=== PATIENT | male | born 1970 | race African-American/Black ===

== ENCOUNTER 2021-04-09 06:23 | Inpatient (IN) | payer MEDICAID ==
[~2021-04-09] VITALS: Ht 175.3 cm; Wt 62.2 kg
[2021-04-09 08:18] LABS: COVID AG,FIA SOURCE NASOPHARYNGEAL
[2021-04-09 09:22] LABS: TROPONIN I < 0.02 ng/mL (0.00-0.05)
[2021-04-09 09:38] LABS: AMMONIA 47 umol/L (11-32)
[2021-04-09 09:52] LABS: BASOPHILS % (AUTO) 0.6 % (0.0-2.0); EOSINOPHILS % (AUTO) 0.2 % (1.0-6.0); HEMATOCRIT 41.6 % (41-53); HEMOGLOBIN 12.9 g/dL (13.5-17.5); LYMPHOCYTES # (AUTO) 1.2 K/uL (1.0-4.8); LYMPHOCYTES % (AUTO) 17.5 % (22.0-44.0); MEAN CORPUSCULAR HEMOGLOBIN 22.6 pg (26.0-34.0); MEAN CORPUSCULAR VOLUME 73 fL (80-100); MONOCYTES # (AUTO) 0.6 K/uL (0.1-1.0); NEUTROPHILS # (AUTO) 5.2 K/uL (1.8-7.7); NEUTROPHILS % (AUTO) 73.7 % (40.0-70.0); PLATELET COUNT (AUTO) 255 K/uL (150-450); RED CELL DISTRIBUTION WIDTH 16.8 % (11.5-14.5)
[2021-04-09 10:15] LABS: PLATELET MORPHOLOGY COMMENT LARGE PLTS PRESENT
[2021-04-09 10:26] LABS: ANION GAP 10 mmol/L (8-16); CALCIUM, TOTAL 8.5 mg/dL (8.8-10.5); CARBON DIOXIDE 28 mmol/L (22-29); CHLORIDE 104 mmol/L (98-107); CREATININE 0.86 mg/dL (0.60-1.30); GLUCOSE,RANDOM 71 mg/dL (70-110); POTASSIUM 3.6 mmol/L (3.5-5.1); SODIUM SERUM 142 mmol/L (136-145); UREA NITROGEN, BLOOD 12 mg/dL (7-18)
[2021-04-09 10:27] LABS: GLOMERULAR FILTR. RATE CALC > 60 mL/min (>60)
[2021-04-09 10:34] LABS: LACTIC ACID 1.3 mmol/L (0.4-2.0)
[2021-04-09 10:51] LABS: ALANINE AMINOTRANSFERASE 49 U/L (12-78); ALBUMIN 3.3 g/dL (3.4-5.0); ALKALINE PHOSPHATASE 114 U/L (46-116); ASPARTATE AMINOTRANSFERASE 135 U/L (15-37); BILIRUBIN,TOTAL 0.5 mg/dL (0.1-1.0); CREATINE KINASE, TOTAL ONLY 2282 U/L (39-308); TOTAL PROTEIN, SERUM 7.2 g/dL (6.4-8.2)
[2021-04-09] MEDS ORDERED: DiphenhydrAMINE HCL 50 MG/ML VIAL IM ONE ×2 (13:15)
[2021-04-09] MEDS ORDERED: LORazepam 2 MG/ML VIAL IVP ONE (13:15)
[2021-04-09] MEDS ORDERED: LORazepam 2 MG/ML VIAL IM ONE ×2 (13:15)
[2021-04-09 13:25] LABS: APPEARANCE,URINE CLEAR (CLEAR); BILIRUBIN,URINE NEGATIVE (NEGATIVE); GLUCOSE, URINE (UA) NEGATIVE (NEGATIVE); KETONES,URINE 15 mg/dL (NEGATIVE); LEUKOCYTE ESTERASE ,URINE NEGATIVE (NEGATIVE); NITRATE,URINE NEGATIVE (NEGATIVE); OCCULT BLOOD,URINE NEGATIVE (NEGATIVE); PH,URINE 5.5 (5.0-8.0); PROTEIN,URINE TRACE (NEGATIVE)
[2021-04-09 13:31] LABS: AMPHET/METH SCREEN,URINE POSITIVE (NEGATIVE); BARBITURATE SCREEN, URINE NEGATIVE (NEGATIVE); BENZODIAZEPINES SCREEN,URINE POSITIVE (NEGATIVE); CANNABINOID SCREEN,URINE POSITIVE (NEGATIVE); COCAINE SCREEN,URINE NEGATIVE (NEGATIVE); METHADONE SCREEN, URINE NEGATIVE (NEGATIVE); OPIATE SCREEN,URINE NEGATIVE (NEGATIVE); PHENCYCLIDINE SCREEN,URINE POSITIVE (NEGATIVE)
[2021-04-09 13:39] LABS: BACTERIA,URINE None Seen /HPF (None Seen); RBC,URINE 0-2 /HPF (0-2); WBC,URINE 0-2 /HPF (0-5)
[2021-04-09] MEDS ORDERED: ONDANSETRON HCL 4 MG/2 ML VIAL IVP PRN ×2 (16:45→22:45)
[2021-04-09] MEDS ORDERED: 0.9% SODIUM CHLORIDE 10 ML SYRINGE IVP PRN (16:45)
[2021-04-09] MEDS ORDERED: POTASSIUM CHL 20 MEQ/D5-0.45NS 1,000 ML IV ONE (16:45)
[2021-04-09] MEDS ORDERED: ACETAMINOPHEN 325 MG TABLET PO PRN (16:45)
[2021-04-09 18:15] VITALS: BP 111/81
[2021-04-09 19:44] VITALS: BP 99/73
[2021-04-09] MEDS ORDERED: BISACODYL 10 MG RECTAL RECTAL SUPPOSITORY PR PRN (22:45)
[2021-04-09] MEDS ORDERED: MAGNESIUM HYDROXIDE SUSPENSION 30 ML UDCUP PO PRN (22:45)
[2021-04-09] MEDS ORDERED: ALBUTEROL SULFATE 2.5 MG/0.5 ML NEB SOLUTION NEB PRN (22:45)
[2021-04-09] MEDS ORDERED: IPRATROPIUM BROMIDE 0.5 MG/2.5 ML NEB SOLUTION NEB PRN (22:45)
[2021-04-09] MEDS ORDERED: SODIUM CHLORIDE 0.9% 1,000 ML IV SCH (22:45)
[2021-04-09] MEDS ORDERED: HYDROCODONE/ACETAMINOPHEN 5-325 MG TABLET PO PRN (22:45)
[2021-04-09] MEDS: HEPARIN SODIUM,PORCINE 5,000 UNITS/ML VIAL SQ SCH (23:41)
[2021-04-10] VITALS (7 sets, daily range): BP systolic 105–132; BP diastolic 56–79
[2021-04-10] MEDS: SODIUM CHLORIDE 0.9% 1,000 ML IV SCH ×2 (06:25→20:00)
[2021-04-10 06:43] LABS: ALANINE AMINOTRANSFERASE 44 U/L (12-78); ALKALINE PHOSPHATASE 103 U/L (46-116); ANION GAP 8 mmol/L (8-16); ASPARTATE AMINOTRANSFERASE 94 U/L (15-37); BILIRUBIN,TOTAL 0.6 mg/dL (0.1-1.0); CALCIUM, TOTAL 8.3 mg/dL (8.8-10.5); CARBON DIOXIDE 28 mmol/L (22-29); CHLORIDE 103 mmol/L (98-107); CREATININE 0.84 mg/dL (0.60-1.30); GLOMERULAR FILTR. RATE CALC > 60 mL/min (>60); GLUCOSE,RANDOM 74 mg/dL (70-110); POTASSIUM 3.2 mmol/L (3.5-5.1); SODIUM SERUM 139 mmol/L (136-145); TOTAL PROTEIN, SERUM 6.7 g/dL (6.4-8.2); UREA NITROGEN, BLOOD 13 mg/dL (7-18)
[2021-04-10] MEDS: HEPARIN SODIUM,PORCINE 5,000 UNITS/ML VIAL SQ SCH ×2 (08:47→16:14)
[2021-04-10] MEDS: PANTOPRAZOLE SODIUM 40 MG DR TABLET PO SCH (13:00)
[2021-04-10] MEDS: LORazepam 2 MG/ML VIAL IM PRN (18:49)
[2021-04-11] MEDS: HEPARIN SODIUM,PORCINE 5,000 UNITS/ML VIAL SQ SCH ×3 (01:14→16:17)
[2021-04-11 05:59] VITALS: BP 133/74
[2021-04-11] MEDS: SODIUM CHLORIDE 0.9% 1,000 ML IV SCH ×2 (06:00→16:00)
[2021-04-11 06:42] LABS: BASOPHILS % (AUTO) 0.4 % (0.0-2.0); EOSINOPHILS % (AUTO) 0.5 % (1.0-6.0); HEMATOCRIT 37.9 % (41-53); HEMOGLOBIN 12.1 g/dL (13.5-17.5); LYMPHOCYTES # (AUTO) 1.3 K/uL (1.0-4.8); LYMPHOCYTES % (AUTO) 26.9 % (22.0-44.0); MEAN CORPUSCULAR HEMOGLOBIN 22.9 pg (26.0-34.0); MEAN CORPUSCULAR HGB CONC 31.8 G/dL (31.0-37.0); MEAN CORPUSCULAR VOLUME 72 fL (80-100); MONOCYTES # (AUTO) 0.5 K/uL (0.1-1.0); MONOCYTES % (AUTO) 9.8 % (2.0-9.0); NEUTROPHILS # (AUTO) 2.9 K/uL (1.8-7.7); NEUTROPHILS % (AUTO) 62.4 % (40.0-70.0); PLATELET COUNT (AUTO) 252 K/uL (150-450); RED BLOOD CELL COUNT(AUTO) 5.27 MIL/uL (4.50-5.90); RED CELL DISTRIBUTION WIDTH 17.7 % (11.5-14.5)
[2021-04-11 07:33] LABS: ALANINE AMINOTRANSFERASE 43 U/L (12-78); ALBUMIN 3.1 g/dL (3.4-5.0); ALKALINE PHOSPHATASE 92 U/L (46-116); ANION GAP 9 mmol/L (8-16); ASPARTATE AMINOTRANSFERASE 84 U/L (15-37); BILIRUBIN,TOTAL 0.3 mg/dL (0.1-1.0); CALCIUM, TOTAL 8.4 mg/dL (8.8-10.5); CARBON DIOXIDE 27 mmol/L (22-29); CHLORIDE 102 mmol/L (98-107); CHOL/HDL RATIO 2.5 (4.2-7.3); CHOLESTEROL 153 mg/dL (131-200); CREATINE KINASE, TOTAL ONLY 985 U/L (39-308); CREATININE 0.65 mg/dL (0.60-1.30); GLOMERULAR FILTR. RATE CALC > 60 mL/min (>60); GLUCOSE,RANDOM 88 mg/dL (70-110); HDL CHOLESTEROL 62 mg/dL (40-60); LDL CHOL (CALC.) 80 mg/dL (0-130); POTASSIUM 3.6 mmol/L (3.5-5.1); SODIUM SERUM 138 mmol/L (136-145); TOTAL PROTEIN, SERUM 6.5 g/dL (6.4-8.2); TRIGLYCERIDES 53 mg/dL (15-150); UREA NITROGEN, BLOOD 10 mg/dL (7-18)
[2021-04-11 08:00] LABS: FREE T4 (FREE THYROXINE) 1.08 ng/dL (0.76-1.46); THYROID STIMULATING HORMONE 0.68 uIU/mL (0.36-3.74)
[2021-04-11] MEDS: PANTOPRAZOLE SODIUM 40 MG DR TABLET PO SCH (08:23)
[2021-04-11 08:33] VITALS: BP 114/61
[2021-04-11 12:03] VITALS: BP 134/104
[2021-04-11] MEDS: LORazepam 2 MG/ML VIAL IM PRN ×2 (12:48→16:55)
[2021-04-11 15:51] VITALS: BP 145/90
[2021-04-11 19:10] VITALS: BP 113/67
[2021-04-11 23:11] VITALS: BP 135/77
[2021-04-12] MEDS: HEPARIN SODIUM,PORCINE 5,000 UNITS/ML VIAL SQ SCH ×2 (00:20→10:30)
[2021-04-12] MEDS: SODIUM CHLORIDE 0.9% 1,000 ML IV SCH ×3 (01:02→18:30)
[2021-04-12 04:00] VITALS: BP 110/67
[2021-04-12 06:56] LABS: BASOPHILS % (AUTO) 0.8 % (0.0-2.0); HEMATOCRIT 41.1 % (41-53); HEMOGLOBIN 12.9 g/dL (13.5-17.5); LYMPHOCYTES # (AUTO) 1.7 K/uL (1.0-4.8); LYMPHOCYTES % (AUTO) 39.3 % (22.0-44.0); MEAN CORPUSCULAR HEMOGLOBIN 22.9 pg (26.0-34.0); MEAN CORPUSCULAR HGB CONC 31.3 G/dL (31.0-37.0); MEAN CORPUSCULAR VOLUME 73 fL (80-100); MONOCYTES # (AUTO) 0.5 K/uL (0.1-1.0); MONOCYTES % (AUTO) 10.4 % (2.0-9.0); NEUTROPHILS # (AUTO) 2.1 K/uL (1.8-7.7); NEUTROPHILS % (AUTO) 48.5 % (40.0-70.0); PLATELET COUNT (AUTO) 244 K/uL (150-450); RED BLOOD CELL COUNT(AUTO) 5.63 MIL/uL (4.50-5.90); RED CELL DISTRIBUTION WIDTH 17.6 % (11.5-14.5)
[2021-04-12 07:15] LABS: ANION GAP 5 mmol/L (8-16); CALCIUM, TOTAL 8.4 mg/dL (8.8-10.5); CARBON DIOXIDE 27 mmol/L (22-29); CHLORIDE 102 mmol/L (98-107); CREATININE 0.72 mg/dL (0.60-1.30); GLOMERULAR FILTR. RATE CALC > 60 mL/min (>60); GLUCOSE,RANDOM 80 mg/dL (70-110); POTASSIUM 4.7 mmol/L (3.5-5.1); SODIUM SERUM 134 mmol/L (136-145); UREA NITROGEN, BLOOD 11 mg/dL (7-18)
[2021-04-12 07:54] VITALS: BP 131/47
[2021-04-12] MEDS ORDERED: SODIUM CHLORIDE 0.9% 1,000 ML ONE (08:57)
[2021-04-12] MEDS ORDERED: ROCURONIUM BROMIDE 10 MG/ML 5 ML VIAL ONE (09:13)
[2021-04-12] MEDS: PANTOPRAZOLE SODIUM 40 MG DR TABLET PO SCH (10:30)
[2021-04-12 11:04] VITALS: BP 118/90
[2021-04-12] MEDS: AMANTADINE HCL 100 MG CAPSULE PO SCH (13:29)
[2021-04-12] MEDS: ClonazePAM 0.5 MG TABLET PO SCH ×2 (14:12→20:32)
[2021-04-12 16:05] VITALS: BP 116/82
[2021-04-12 16:13] LABS: CHOLESTEROL 191 mg/dL (131-200); CREATINE KINASE, TOTAL ONLY 746 U/L (39-308); TRIGLYCERIDES 55 mg/dL (15-150)
[2021-04-12 16:33] LABS: CHOL/HDL RATIO 2.7 (4.2-7.3); HDL CHOLESTEROL 72 mg/dL (40-60); LDL CHOL (CALC.) 108 mg/dL (0-130); PHOSPHORUS 4.1 mg/dL (2.5-4.9)
[2021-04-12] MEDS: LORazepam 2 MG/ML VIAL IVP PRN (18:02)
[2021-04-12 19:52] VITALS: BP 110/75
[2021-04-12] MEDS: ACETAMINOPHEN 325 MG TABLET PO PRN (20:33)
[2021-04-12] MEDS ORDERED: ClonazePAM 0.5 MG TABLET PO SCH ×2 (21:00)
[2021-04-13 00:07] VITALS: BP 113/72
[2021-04-13] MEDS: SODIUM CHLORIDE 0.9% 1,000 ML IV SCH ×2 (04:06→18:09)
[2021-04-13 05:03] VITALS: BP 118/67
[2021-04-13 07:28] VITALS: BP 122/68
[2021-04-13 07:49] LABS: BASOPHILS % (AUTO) 0.9 % (0.0-2.0); EOSINOPHILS % (AUTO) 0.5 % (1.0-6.0); HEMATOCRIT 39.4 % (41-53); HEMOGLOBIN 12.1 g/dL (13.5-17.5); LYMPHOCYTES # (AUTO) 1.4 K/uL (1.0-4.8); LYMPHOCYTES % (AUTO) 26.1 % (22.0-44.0); MEAN CORPUSCULAR HEMOGLOBIN 22.4 pg (26.0-34.0); MEAN CORPUSCULAR HGB CONC 30.7 G/dL (31.0-37.0); MEAN CORPUSCULAR VOLUME 73 fL (80-100); MONOCYTES # (AUTO) 0.4 K/uL (0.1-1.0); MONOCYTES % (AUTO) 7.5 % (2.0-9.0); NEUTROPHILS # (AUTO) 3.5 K/uL (1.8-7.7); PLATELET COUNT (AUTO) 249 K/uL (150-450); RED CELL DISTRIBUTION WIDTH 17.5 % (11.5-14.5)
[2021-04-13] MEDS: PANTOPRAZOLE SODIUM 40 MG DR TABLET PO SCH (08:32)
[2021-04-13] MEDS: AMANTADINE HCL 100 MG CAPSULE PO SCH (08:32)
[2021-04-13] MEDS: ClonazePAM 0.5 MG TABLET PO SCH ×2 (08:32→20:19)
[2021-04-13 08:40] LABS: ALANINE AMINOTRANSFERASE 44 U/L (12-78); ALBUMIN 3.1 g/dL (3.4-5.0); ALKALINE PHOSPHATASE 99 U/L (46-116); ANION GAP 7 mmol/L (8-16); ASPARTATE AMINOTRANSFERASE 61 U/L (15-37); BILIRUBIN,TOTAL 0.2 mg/dL (0.1-1.0); CALCIUM, TOTAL 8.5 mg/dL (8.8-10.5); CARBON DIOXIDE 28 mmol/L (22-29); CHLORIDE 102 mmol/L (98-107); CREATINE KINASE, TOTAL ONLY 562 U/L (39-308); CREATININE 0.67 mg/dL (0.60-1.30); GLOMERULAR FILTR. RATE CALC > 60 mL/min (>60); GLUCOSE,RANDOM 96 mg/dL (70-110); POTASSIUM 4.4 mmol/L (3.5-5.1); SODIUM SERUM 137 mmol/L (136-145); TOTAL PROTEIN, SERUM 7.1 g/dL (6.4-8.2); UREA NITROGEN, BLOOD 8 mg/dL (7-18)
[2021-04-13] MEDS: LORazepam 2 MG/ML VIAL IVP PRN ×2 (09:48→17:19)
[2021-04-13 12:12] VITALS: BP 120/80
[2021-04-13] MEDS: MORPHINE SULFATE 2 MG/ML SYRINGE IVP PRN (13:11)
[2021-04-13 15:56] VITALS: BP 140/74
[2021-04-13 20:00] VITALS: BP 105/67
[2021-04-14] VITALS (7 sets, daily range): BP systolic 102–155; BP diastolic 68–93
[2021-04-14] MEDS: SODIUM CHLORIDE 0.9% 1,000 ML IV SCH ×3 (02:21→22:05)
[2021-04-14] MEDS: LORazepam 2 MG/ML VIAL IVP PRN (07:28)
[2021-04-14] MEDS: ClonazePAM 0.5 MG TABLET PO SCH ×2 (08:13→20:16)
[2021-04-14] MEDS: AMANTADINE HCL 100 MG CAPSULE PO SCH (08:13)
[2021-04-14] MEDS: PANTOPRAZOLE SODIUM 40 MG DR TABLET PO SCH (08:13)
[2021-04-14 10:30] LABS: BASOPHILS % (AUTO) 0.9 % (0.0-2.0); EOSINOPHILS % (AUTO) 0.6 % (1.0-6.0); HEMATOCRIT 39.2 % (41-53); HEMOGLOBIN 12.1 g/dL (13.5-17.5); LYMPHOCYTES # (AUTO) 1.1 K/uL (1.0-4.8); LYMPHOCYTES % (AUTO) 19.7 % (22.0-44.0); MEAN CORPUSCULAR HEMOGLOBIN 22.5 pg (26.0-34.0); MEAN CORPUSCULAR HGB CONC 30.9 G/dL (31.0-37.0); MEAN CORPUSCULAR VOLUME 73 fL (80-100); MONOCYTES # (AUTO) 0.5 K/uL (0.1-1.0); MONOCYTES % (AUTO) 8.7 % (2.0-9.0); NEUTROPHILS # (AUTO) 3.8 K/uL (1.8-7.7); NEUTROPHILS % (AUTO) 70.1 % (40.0-70.0); PLATELET COUNT (AUTO) 229 K/uL (150-450); RED CELL DISTRIBUTION WIDTH 17.1 % (11.5-14.5)
[2021-04-14 10:48] LABS: ALANINE AMINOTRANSFERASE 39 U/L (12-78); ALBUMIN 3.1 g/dL (3.4-5.0); ALKALINE PHOSPHATASE 99 U/L (46-116); ANION GAP 6 mmol/L (8-16); ASPARTATE AMINOTRANSFERASE 50 U/L (15-37); BILIRUBIN,TOTAL 0.2 mg/dL (0.1-1.0); CALCIUM, TOTAL 8.5 mg/dL (8.8-10.5); CARBON DIOXIDE 28 mmol/L (22-29); CHLORIDE 103 mmol/L (98-107); CHOL/HDL RATIO 2.9 (4.2-7.3); CHOLESTEROL 178 mg/dL (131-200); CREATININE 0.81 mg/dL (0.60-1.30); GLOMERULAR FILTR. RATE CALC > 60 mL/min (>60); GLUCOSE,RANDOM 80 mg/dL (70-110); HDL CHOLESTEROL 61 mg/dL (40-60); LDL CHOL (CALC.) 100 mg/dL (0-130); POTASSIUM 4.5 mmol/L (3.5-5.1); SODIUM SERUM 137 mmol/L (136-145); TOTAL PROTEIN, SERUM 7.1 g/dL (6.4-8.2); TRIGLYCERIDES 84 mg/dL (15-150); UREA NITROGEN, BLOOD 14 mg/dL (7-18)
[2021-04-14] MEDS ORDERED: CARBIDOPA/LEVODOPA 25-100 MG TABLET PO SCH (16:00)
[2021-04-14] MEDS: CARBIDOPA/LEVODOPA 25-100 MG TABLET PO SCH ×2 (16:17→20:16)
[2021-04-14] MEDS: MORPHINE SULFATE 2 MG/ML SYRINGE IVP PRN ×2 (19:00→22:03)
[2021-04-14] MEDS: ZOLPIDEM TARTRATE 5 MG TABLET PO PRN (22:03)
[2021-04-15] MEDS: MORPHINE SULFATE 2 MG/ML SYRINGE IVP PRN (02:53)
[2021-04-15] MEDS: LORazepam 2 MG/ML VIAL IVP PRN ×3 (04:40→17:04)
[2021-04-15 04:55] VITALS: BP 105/58
[2021-04-15] MEDS: AMANTADINE HCL 100 MG CAPSULE PO SCH (08:09)
[2021-04-15] MEDS: PANTOPRAZOLE SODIUM 40 MG DR TABLET PO SCH (08:09)
[2021-04-15] MEDS: ClonazePAM 0.5 MG TABLET PO SCH ×2 (08:09→20:10)
[2021-04-15] MEDS: CARBIDOPA/LEVODOPA 25-100 MG TABLET PO SCH ×3 (08:09→20:10)
[2021-04-15] MEDS: SODIUM CHLORIDE 0.9% 1,000 ML IV SCH ×2 (09:15→20:09)
[2021-04-15 10:09] LABS: BASOPHILS % (AUTO) 1.6 % (0.0-2.0); EOSINOPHILS % (AUTO) 1.3 % (1.0-6.0); HEMATOCRIT 38.3 % (41-53); LYMPHOCYTES # (AUTO) 1.1 K/uL (1.0-4.8); MEAN CORPUSCULAR HEMOGLOBIN 22.4 pg (26.0-34.0); MEAN CORPUSCULAR HGB CONC 31.3 G/dL (31.0-37.0); MEAN CORPUSCULAR VOLUME 72 fL (80-100); MONOCYTES # (AUTO) 0.6 K/uL (0.1-1.0); MONOCYTES % (AUTO) 10.2 % (2.0-9.0); NEUTROPHILS # (AUTO) 3.8 K/uL (1.8-7.7); NEUTROPHILS % (AUTO) 66.9 % (40.0-70.0); PLATELET COUNT (AUTO) 242 K/uL (150-450); RED BLOOD CELL COUNT(AUTO) 5.34 MIL/uL (4.50-5.90); RED CELL DISTRIBUTION WIDTH 17.6 % (11.5-14.5)
[2021-04-15 10:25] LABS: ALANINE AMINOTRANSFERASE 15 U/L (12-78); ALBUMIN 3.1 g/dL (3.4-5.0); ALKALINE PHOSPHATASE 92 U/L (46-116); ANION GAP 8 mmol/L (8-16); ASPARTATE AMINOTRANSFERASE 37 U/L (15-37); BILIRUBIN,TOTAL 0.2 mg/dL (0.1-1.0); CALCIUM, TOTAL 8.5 mg/dL (8.8-10.5); CARBON DIOXIDE 26 mmol/L (22-29); CHLORIDE 101 mmol/L (98-107); CREATININE 0.59 mg/dL (0.60-1.30); GLOMERULAR FILTR. RATE CALC > 60 mL/min (>60); GLUCOSE,RANDOM 87 mg/dL (70-110); POTASSIUM 4.5 mmol/L (3.5-5.1); SODIUM SERUM 135 mmol/L (136-145); TOTAL PROTEIN, SERUM 6.9 g/dL (6.4-8.2); UREA NITROGEN, BLOOD 15 mg/dL (7-18)
[2021-04-15 12:05] VITALS: BP 113/85
[2021-04-15 16:59] VITALS: BP 158/59
[2021-04-15] MEDS: ZOLPIDEM TARTRATE 5 MG TABLET PO PRN (20:10)
[2021-04-15 20:50] VITALS: BP 107/60
[2021-04-16 00:09] VITALS: BP 142/77
[2021-04-16 05:12] VITALS: BP 122/68
[2021-04-16 07:56] VITALS: BP 126/71
[2021-04-16] MEDS: CARBIDOPA/LEVODOPA 25-100 MG TABLET PO SCH ×3 (08:22→20:42)
[2021-04-16] MEDS: AMANTADINE HCL 100 MG CAPSULE PO SCH (08:22)
[2021-04-16] MEDS: PANTOPRAZOLE SODIUM 40 MG DR TABLET PO SCH (08:22)
[2021-04-16] MEDS: ClonazePAM 0.5 MG TABLET PO SCH ×2 (08:22→20:43)
[2021-04-16] MEDS: LORazepam 2 MG/ML VIAL IVP PRN ×4 (08:27→23:03)
[2021-04-16] MEDS: SODIUM CHLORIDE 0.9% 1,000 ML IV SCH ×2 (08:28→18:16)
[2021-04-16 12:34] VITALS: BP 134/81
[2021-04-16 16:01] VITALS: BP 129/78
[2021-04-16 20:22] VITALS: BP 134/61
[2021-04-16] MEDS: ZOLPIDEM TARTRATE 5 MG TABLET PO PRN (21:46)
[2021-04-17 00:16] VITALS: BP 128/68
[2021-04-17] MEDS: SODIUM CHLORIDE 0.9% 1,000 ML IV SCH ×2 (04:36→13:54)
[2021-04-17] MEDS: LORazepam 2 MG/ML VIAL IVP PRN ×4 (04:41→19:31)
[2021-04-17 04:44] VITALS: BP 121/51
[2021-04-17] MEDS: AMANTADINE HCL 100 MG CAPSULE PO SCH (09:00)
[2021-04-17] MEDS: ClonazePAM 0.5 MG TABLET PO SCH ×2 (09:00→21:05)
[2021-04-17] MEDS: CARBIDOPA/LEVODOPA 25-100 MG TABLET PO SCH ×3 (09:00→21:05)
[2021-04-17] MEDS: PANTOPRAZOLE SODIUM 40 MG DR TABLET PO SCH (09:00)
[2021-04-17 09:43] VITALS: BP 127/93
[2021-04-17] MEDS: ACETAMINOPHEN 325 MG TABLET PO PRN (13:52)
[2021-04-17 19:11] VITALS: BP 124/78
[2021-04-17 23:08] VITALS: BP 120/64
[2021-04-17] MEDS: ZOLPIDEM TARTRATE 5 MG TABLET PO PRN (23:09)
[2021-04-18] MEDS: SODIUM CHLORIDE 0.9% 1,000 ML IV SCH (01:54)
[2021-04-18] MEDS: LORazepam 2 MG/ML VIAL IVP PRN ×2 (01:54→08:41)
[2021-04-18 03:51] VITALS: BP 118/60
[2021-04-18] MEDS: CARBIDOPA/LEVODOPA 25-100 MG TABLET PO SCH (08:01)
[2021-04-18] MEDS: AMANTADINE HCL 100 MG CAPSULE PO SCH (08:02)
[2021-04-18] MEDS: ClonazePAM 0.5 MG TABLET PO SCH (08:02)
[2021-04-18] MEDS: PANTOPRAZOLE SODIUM 40 MG DR TABLET PO SCH (08:02)
[2021-04-18 09:14] VITALS: BP 143/80
[2021-04-18] MEDS ORDERED: CLON-592 PO (10:23)
[2021-04-18] MEDS ORDERED: CARB-98 PO (10:23)
[2021-04-18] MEDS ORDERED: PANT-31 PO (10:24)
[2021-04-18] MEDS ORDERED: AMAN100C14 PO (10:24)
== END 2021-04-18 11:00 | disposition home or self-care (01) | DRG 812 ==
LOC: EMS 06:23 → EDBD 06:23 → 5S 16:34 → 6N 04-15 18:30
PROVIDERS: ADMIT Hospitalist; ATTEND Hospitalist
DX: T50.911A Poisoning by multiple unspecified drugs, medicaments and biological substances, accidental (unintentional), initial encounter (principal); I63.9 Cerebral infarction, unspecified; G92 Toxic encephalopathy; E44.0 Moderate protein-calorie malnutrition; M62.82 Rhabdomyolysis; G25.5 Other chorea; F20.9 Schizophrenia, unspecified; F19.10 Other psychoactive substance abuse, uncomplicated; G24.9 Dystonia, unspecified; F15.10 Other stimulant abuse, uncomplicated; Z20.822 Contact with and (suspected) exposure to COVID-19; F17.210 Nicotine dependence, cigarettes, uncomplicated; Q21.1 Atrial septal defect; Z59.0 Homelessness; Z68.20 Body mass index [BMI] 20.0-20.9, adult; Z79.899 Other long term (current) drug therapy
CPT/HCPCS: 70450; 70544; 70551; 71045; 80048; 80053; 80061; 81001; 82140; 82550; 83605; 83735; 84100; 84439; 84443; 84484; 85025; 93005; 93308; 93880; 97116; 97163; 97166; 97530; 97535; 99291; G0480; J1200; J1644; J2060; J2270; J3480; J3490; J7030; 36415-L1; 36415-TC

== ENCOUNTER 2021-05-02 11:45 | Emergency (ER) | payer MEDICAID ==
[~2021-05-02] VITALS: Ht 172.7 cm; Wt 63.0 kg
[~2021-05-02 11:45] MED LIST: AMAN100C14 PO; CARB-98 PO; CLON-592 PO; PANT-31 PO
[2021-05-02 12:18] VITALS: BP 90/65
== END 2021-05-02 12:50 | disposition home or self-care (01) ==
LOC: UNMERGE 11:50 → EMS 11:50 → MERGE 11:50 → EMS 12:50
DX: R44.1 Visual hallucinations (principal); F32.9 Major depressive disorder, single episode, unspecified; F41.9 Anxiety disorder, unspecified; F17.210 Nicotine dependence, cigarettes, uncomplicated; F12.90 Cannabis use, unspecified, uncomplicated
CPT/HCPCS: 99283; Z7502

== ENCOUNTER 2021-05-08 00:24 | Emergency (ER) | payer MEDICAID ==
[~2021-05-08] VITALS: Ht 172.7 cm; Wt 72.7 kg
[2021-05-08 04:08] VITALS: BP 124/68
== END 2021-05-08 04:26 | disposition home or self-care (01) ==
LOC: EMS 00:24
DX: R44.1 Visual hallucinations (principal); R21 Rash and other nonspecific skin eruption; F41.9 Anxiety disorder, unspecified; F32.9 Major depressive disorder, single episode, unspecified; F17.210 Nicotine dependence, cigarettes, uncomplicated; F12.90 Cannabis use, unspecified, uncomplicated
CPT/HCPCS: 99281; Z7502